=== PATIENT | female | born 1945 | race Hispanic/Latino ===

== ENCOUNTER 2024-02-27 19:31 | Inpatient (IN) | payer MEDICARE, OTHER ==
[~2024-02-27] VITALS: Ht 152.4 cm; Wt 57.6 kg
[2024-02-27 19:52] LABS: BASOPHILS % 0.1 % (0.0-1.0); LYMPHOCYTES # (AUTO) 1.1 (1.0-3.2); LYMPHOCYTES % 12.5 % (18.0-39.1); MONOCYTES # (AUTO) 0.7 (0.2-0.8); MONOCYTES % 7.4 % (4.4-11.3); NEUTROPHILS % 78.9 % (38.7-80.0); PLATELET COUNT 230 x10e3/uL (140-360); RED BLOOD COUNT 1.22 x10e6/uL (3.6-5.1); RED CELL DISTRIBUTION WIDTH 17.4 % (11.7-14.4); WHITE BLOOD COUNT 8.88 x10e3/uL (4.8-10.8)
[2024-02-27 19:54] LABS: HEMATOCRIT 12.2 % (34.2-44.1); HEMOGLOBIN 3.9 g/dL (12.0-16.0)
[2024-02-27 20:05] LABS: ALBUMIN 2.7 g/dL (3.5-5.0); ALBUMIN/GLOBULIN RATIO 1.1 (0.8-2.0); ANION GAP 25.3 mmol/L (8-16); BILIRUBIN,TOTAL 0.9 mg/dL (0.2-1.2); CREATININE, SERUM 2.55 mg/dL (0.57-1.11); POTASSIUM 5.3 mmol/L (3.5-5.1); TOTAL PROTEIN 5.2 g/dL (6.5-8.1)
[2024-02-27 20:10] LABS: TROPONIN I 0.046 ng/mL (0-0.300)
[2024-02-27] MEDS: SODIUM CHLORIDE 0.9% 1000ML 1,000 ML IV STA ×2 (20:14→20:16)
[2024-02-27] MEDS ORDERED: NOREPINEPHRINE 8 MG/D5W 250 ML 250 ML ONE (20:14)
[2024-02-27] MEDS: NOREPINEPHRINE 8 MG/D5W 250 ML 250 ML IV SCH (20:15)
[2024-02-27 20:16] LABS: B-TYPE NATRIURETIC PEPTIDE2 1149.6 pg/mL (0-100)
[2024-02-27 20:30] VITALS: PULSE 58; RESP 20; O2SAT 100
[2024-02-27 20:40] LABS: BILIRUBIN,URINE NEGATIVE (NEGATIVE); CLARITY,URINE SL CLOUDY (CLEAR); COLOR,URINE YELLOW (YELLOW); GLUCOSE, URINE 500 (NEGATIVE); KETONES,URINE NEGATIVE (NEGATIVE); LEUKOCYTE ESTERASE ,URINE NEGATIVE (NEGATIVE); NITRITE,URINE NEGATIVE (NEGATIVE); PH,URINE 5.5 (5 - 7); PROTEIN,URINE DIPSTICK NEGATIVE (NEGATIVE); URINE UROBILINOGEN 0.2 mg/dL (0.2 - 1)
[2024-02-27 20:51] LABS: BACTERIA,URINE RARE /HPF; EPITHELIAL CELLS,URINE RARE /LPF
[2024-02-27] MEDS: ACETAMINOPHEN 325 MG TAB PO STA (21:00)
[2024-02-27] MEDS ORDERED: DEXTROSE 50% SYRINGE 50 ML IV PRN (21:30)
[2024-02-27] MEDS ORDERED: SODIUM CHLORIDE 0.9% 1000ML 1,000 ML IV SCH (21:30)
[2024-02-27 22:18] LABS: BASOPHILS % 0.1 % (0.0-1.0); LYMPHOCYTES # (AUTO) 1.4 (1.0-3.2); LYMPHOCYTES % 10.9 % (18.0-39.1); MEAN CORPUSCULAR HEMOGLOBIN 31.9 pg (28-32); MEAN CORPUSCULAR HGB CONC 32.4 g/dL (31-35); MEAN CORPUSCULAR VOLUME 98.6 fL (81-99); MONOCYTES # (AUTO) 0.9 (0.2-0.8); MONOCYTES % 6.6 % (4.4-11.3); NEUTROPHILS # (AUTO) 10.8 (2.1-6.9); NEUTROPHILS % 81.3 % (38.7-80.0); RED BLOOD COUNT 1.44 x10e6/uL (3.6-5.1); WHITE BLOOD COUNT 13.26 x10e3/uL (4.8-10.8)
[2024-02-27 22:20] LABS: HEMATOCRIT 14.2 % (34.2-44.1); HEMOGLOBIN 4.6 g/dL (12.0-16.0); PLATELET COUNT 195 x10e3/uL (140-360)
[2024-02-27 22:30] LABS: ALBUMIN 2.6 g/dL (3.5-5.0); ANION GAP 23.1 mmol/L (8-16); CALCIUM 7.3 mg/dL (8.4-10.2); CREATININE, SERUM 2.45 mg/dL (0.57-1.11); POTASSIUM 5.1 mmol/L (3.5-5.1); TOTAL PROTEIN 5.1 g/dL (6.5-8.1); TROPONIN I 0.053 ng/mL (0-0.300)
[2024-02-27] MEDS: SODIUM CHLORIDE 0.9% 250ML 250 ML IV ONE (22:52)
[2024-02-27 23:06] LABS: ABG PH 7.27 (7.35-7.45)
[2024-02-27] MEDS: SODIUM BICARBONATE 8.4% 50 ML in SODIUM CHLORIDE 0.45% 1,000 ML IV ONE (23:06)
[2024-02-27 23:07] LABS: ABG HCO3 9 mmol/L (22-26); ABG PCO2 19 mmHg (35-45); ABG PO2 356 mmHg (80-105); ABG TCO2 9
[2024-02-27] MEDS ORDERED: SODIUM CHLORIDE 0.45% 1,000 ML ONE (23:07)
[2024-02-27] MEDS ORDERED: SODIUM BICARBONATE 8.4% SYRING 50 ML ONE (23:08)
[2024-02-27 23:50] VITALS: BP 97/53; PULSE 80; RESP 20; TEMP 94.5; O2SAT 93
[2024-02-28] VITALS (54 sets, daily range): BP systolic 58–122; BP diastolic 26–95; PULSE 42–146; RESP 12–23; TEMP 98.5–99.8; O2SAT 84–100
[2024-02-28] MEDS: ACETAMINOPHEN 325 MG TAB PO PRN (02:40)
[2024-02-28] MEDS ORDERED: CEPHALEXIN500 MG (03:53)
[2024-02-28] MEDS ORDERED: GLYBURIDE5 MG PO (03:53)
[2024-02-28] MEDS ORDERED: GLIPIZIDE5 MG (03:53)
[2024-02-28] MEDS ORDERED: CARVEDILOL6.25 MG (03:53)
[2024-02-28] MEDS ORDERED: ALLOPURINOL100 MG (03:53)
[2024-02-28] MEDS ORDERED: LOSARTAN POTASS25 MG (03:53)
[2024-02-28] MEDS ORDERED: ELIQUIS2.5 MG (03:53)
[2024-02-28] MEDS ORDERED: FUROSEMIDE20 MG (03:53)
[2024-02-28] MEDS ORDERED: ATORVASTATIN CA20 MG (03:53)
[2024-02-28] MEDS ORDERED: FARXIGA10 MG (03:53)
[2024-02-28] MEDS ORDERED: COLACE CLEAR50 MG (03:53)
[2024-02-28] MEDS ORDERED: IBUPROFEN400 MG PO (03:53)
[2024-02-28] MEDS: INSULIN REGULAR, HUMAN 100 UNIT/1 ML SQ SCH (07:30)
[2024-02-28] MEDS: MUPIROCIN 2% OINT 22 GM TUBE TOP SCH (09:00)
[2024-02-28 09:13] LABS: BASOPHILS % 0.1 % (0.0-1.0); HEMATOCRIT 30.8 % (34.2-44.1); HEMOGLOBIN 11.3 g/dL (12.0-16.0); LYMPHOCYTES # (AUTO) 1.3 (1.0-3.2); MEAN CORPUSCULAR HEMOGLOBIN 31.9 pg (28-32); MEAN CORPUSCULAR HGB CONC 36.7 g/dL (31-35); MONOCYTES # (AUTO) 1.8 (0.2-0.8); NEUTROPHILS # (AUTO) 15.1 (2.1-6.9); NEUTROPHILS % 81.8 % (38.7-80.0); PLATELET COUNT 203 x10e3/uL (140-360); RED BLOOD COUNT 3.54 x10e6/uL (3.6-5.1); RED CELL DISTRIBUTION WIDTH 17.4 % (11.7-14.4)
[2024-02-28] MEDS: Vancomycin IV 1 GM in SODIUM CHLORIDE 0.9% 250ML 250 ML IV ONE (09:16)
[2024-02-28 09:31] LABS: ALBUMIN 3.2 g/dL (3.5-5.0); ALBUMIN/GLOBULIN RATIO 1.1 (0.8-2.0); ANION GAP 21.9 mmol/L (8-16); BILIRUBIN,TOTAL 2.4 mg/dL (0.2-1.2); CALCIUM 7.5 mg/dL (8.4-10.2); CREATININE, SERUM 2.72 mg/dL (0.57-1.11); POTASSIUM 4.9 mmol/L (3.5-5.1); TOTAL PROTEIN 6.2 g/dL (6.5-8.1)
[2024-02-28 10:07] LABS: TROPONIN I 0.141 ng/mL (0-0.300)
[2024-02-28] MEDS ORDERED: AMIODARONE HCL 150 MG/100 ML BAG IV ONE (12:45)
[2024-02-28] MEDS ORDERED: AMIODARONE HCL 100 ML IV SCH (12:50)
[2024-02-28] MEDS: AMIODARONE 900MG 500 ML IV SCH (14:21)
[2024-02-28] MEDS: ATORVASTATIN 20 MG TAB PO SCH (21:00)
[2024-02-29] VITALS (81 sets, daily range): BP systolic 68–133; BP diastolic 43–97; PULSE 33–126; RESP 12–28; TEMP 97.8–98.5; O2SAT 52–100
[2024-02-29 03:38] LABS: % IRON SATURATION 71 % (15-50); IRON 189 ug/dL (50-170); TOTAL IRON BINDING CAPACITY 267 ug/dL (261-478); TRANSFERRIN 191 mg/dL (180-382)
[2024-02-29 06:57] LABS: BASOPHILS % 0.2 % (0.0-1.0); EOSINOPHILS % 0.1 % (0.0-6.0); HEMOGLOBIN 11.4 g/dL (12.0-16.0); LYMPHOCYTES # (AUTO) 1.6 (1.0-3.2); MEAN CORPUSCULAR HEMOGLOBIN 31.6 pg (28-32); MEAN CORPUSCULAR HGB CONC 36.8 g/dL (31-35); MEAN CORPUSCULAR VOLUME 85.9 fL (81-99); MONOCYTES # (AUTO) 2.1 (0.2-0.8); MONOCYTES % 12.2 % (4.4-11.3); NEUTROPHILS # (AUTO) 13.4 (2.1-6.9); NEUTROPHILS % 77.5 % (38.7-80.0); PLATELET COUNT 229 x10e3/uL (140-360); RED BLOOD COUNT 3.61 x10e6/uL (3.6-5.1); RED CELL DISTRIBUTION WIDTH 17.6 % (11.7-14.4); WHITE BLOOD COUNT 17.35 x10e3/uL (4.8-10.8)
[2024-02-29 07:10] LABS: INR 2.17; PROTHROMBIN TIME 24.4 seconds (11.9-14.5)
[2024-02-29 07:19] LABS: ALBUMIN 2.8 g/dL (3.5-5.0); ALBUMIN/GLOBULIN RATIO 0.9 (0.8-2.0); BILIRUBIN,TOTAL 1.5 mg/dL (0.2-1.2); CALCIUM 7.3 mg/dL (8.4-10.2); CREATININE, SERUM 2.71 mg/dL (0.57-1.11); TOTAL PROTEIN 5.9 g/dL (6.5-8.1)
[2024-02-29] MEDS: SODIUM BICARBONATE 8.4% 150 ML in DEXTROSE 5% 1,000 ML IV ONE (09:54)
[2024-02-29] MEDS ORDERED: ACETAMINOPHEN 650 MG SUPP PR PRN (13:00)
[2024-02-29] MEDS: AMIODARONE 900MG 500 ML IV SCH (15:05)
[2024-02-29] MEDS: METRONIDAZOLE 500MG/NS 100ML 100 ML IV SCH (15:15)
[2024-03-01] VITALS (85 sets, daily range): BP systolic 63–208; BP diastolic 45–196; PULSE 31–97; RESP 8–37; TEMP 97–98.6; O2SAT 77–100
[2024-03-01 06:59] LABS: BASOPHILS % 0.1 % (0.0-1.0); EOSINOPHILS # (AUTO) 0.1 (0.0-0.4); EOSINOPHILS % 0.6 % (0.0-6.0); HEMATOCRIT 33.8 % (34.2-44.1); HEMOGLOBIN 11.9 g/dL (12.0-16.0); LYMPHOCYTES # (AUTO) 1.4 (1.0-3.2); LYMPHOCYTES % 9.3 % (18.0-39.1); MEAN CORPUSCULAR HEMOGLOBIN 31.3 pg (28-32); MEAN CORPUSCULAR HGB CONC 35.2 g/dL (31-35); MEAN CORPUSCULAR VOLUME 88.9 fL (81-99); MONOCYTES # (AUTO) 1.4 (0.2-0.8); MONOCYTES % 9.5 % (4.4-11.3); NEUTROPHILS # (AUTO) 12.1 (2.1-6.9); NEUTROPHILS % 79.4 % (38.7-80.0); PLATELET COUNT 230 x10e3/uL (140-360); RED CELL DISTRIBUTION WIDTH 17.2 % (11.7-14.4); WHITE BLOOD COUNT 15.23 x10e3/uL (4.8-10.8)
[2024-03-01 07:47] LABS: ANION GAP 18.6 mmol/L (8-16); CALCIUM 7.8 mg/dL (8.4-10.2); CREATININE, SERUM 2.39 mg/dL (0.57-1.11); POTASSIUM 3.6 mmol/L (3.5-5.1)
[2024-03-01 08:34] LABS: TROPONIN I 0.152 ng/mL (0-0.300)
[2024-03-01] MEDS: MIDODRINE HCL 5 MG TABLET PO SCH (13:27)
[2024-03-01] MEDS: SODIUM BICARBONATE 650 MG TAB PO SCH (17:00)
[2024-03-02] VITALS (94 sets, daily range): BP systolic 84–127; BP diastolic 42–86; PULSE 59–98; RESP 10–23; TEMP 96.1–98.1; O2SAT 96–100
[2024-03-02 06:41] LABS: BASOPHILS % 0.2 % (0.0-1.0); EOSINOPHILS # (AUTO) 0.3 (0.0-0.4); EOSINOPHILS % 2.3 % (0.0-6.0); HEMATOCRIT 31.4 % (34.2-44.1); HEMOGLOBIN 11.1 g/dL (12.0-16.0); LYMPHOCYTES # (AUTO) 1.6 (1.0-3.2); MEAN CORPUSCULAR HEMOGLOBIN 31.2 pg (28-32); MEAN CORPUSCULAR HGB CONC 35.4 g/dL (31-35); MEAN CORPUSCULAR VOLUME 88.2 fL (81-99); MONOCYTES # (AUTO) 1.6 (0.2-0.8); NEUTROPHILS # (AUTO) 10.7 (2.1-6.9); NEUTROPHILS % 74.2 % (38.7-80.0); PLATELET COUNT 200 x10e3/uL (140-360); RED BLOOD COUNT 3.56 x10e6/uL (3.6-5.1); RED CELL DISTRIBUTION WIDTH 18.2 % (11.7-14.4); WHITE BLOOD COUNT 14.47 x10e3/uL (4.8-10.8)
[2024-03-02 06:59] LABS: ALBUMIN 2.4 g/dL (3.5-5.0); ALBUMIN/GLOBULIN RATIO 0.8 (0.8-2.0); ANION GAP 16.4 mmol/L (8-16); BILIRUBIN,TOTAL 1.7 mg/dL (0.2-1.2); CALCIUM 7.8 mg/dL (8.4-10.2); CREATININE, SERUM 2.28 mg/dL (0.57-1.11); TOTAL PROTEIN 5.5 g/dL (6.5-8.1)
[2024-03-02 07:10] LABS: POTASSIUM 3.4 mmol/L (3.5-5.1)
[2024-03-03] VITALS (85 sets, daily range): BP systolic 76–120; BP diastolic 45–91; PULSE 47–88; RESP 10–28; TEMP 97.5–98.7; O2SAT 90–100
[2024-03-03] MEDS: BUMETANIDE INJ 0.25MG/ML 4ML VIAL IV ONE (10:27)
[2024-03-03] MEDS: POTASSIUM CHLORIDE 20MEQ/100ML 100 ML IV ONE (10:29)
[2024-03-03] MEDS: SODIUM BICARBONATE 8.4% SYRING 150 ML in DEXTROSE 5% 1,000 ML IV SCH (15:34)
[2024-03-03] MEDS: BUMETANIDE INJ 0.25MG/ML 4ML VIAL IV SCH (21:43)
[2024-03-04] VITALS (80 sets, daily range): BP systolic 83–118; BP diastolic 48–88; PULSE 60–100; RESP 10–20; TEMP 97.3–98.9; O2SAT 72–100
[2024-03-04 06:26] LABS: BASOPHILS % 0.1 % (0.0-1.0); EOSINOPHILS # (AUTO) 0.2 (0.0-0.4); EOSINOPHILS % 2.3 % (0.0-6.0); HEMATOCRIT 33.2 % (34.2-44.1); HEMOGLOBIN 11.2 g/dL (12.0-16.0); LYMPHOCYTES # (AUTO) 1.1 (1.0-3.2); LYMPHOCYTES % 10.7 % (18.0-39.1); MEAN CORPUSCULAR HEMOGLOBIN 31.1 pg (28-32); MEAN CORPUSCULAR HGB CONC 33.7 g/dL (31-35); MEAN CORPUSCULAR VOLUME 92.2 fL (81-99); MONOCYTES # (AUTO) 1.2 (0.2-0.8); MONOCYTES % 11.7 % (4.4-11.3); NEUTROPHILS # (AUTO) 7.5 (2.1-6.9); NEUTROPHILS % 73.3 % (38.7-80.0); PLATELET COUNT 194 x10e3/uL (140-360); RED CELL DISTRIBUTION WIDTH 18.6 % (11.7-14.4); WHITE BLOOD COUNT 10.18 x10e3/uL (4.8-10.8)
[2024-03-04 06:57] LABS: ALBUMIN 2.2 g/dL (3.5-5.0); ALBUMIN/GLOBULIN RATIO 0.8 (0.8-2.0); ANION GAP 16.4 mmol/L (8-16); BILIRUBIN,TOTAL 1.7 mg/dL (0.2-1.2); CALCIUM 7.9 mg/dL (8.4-10.2); CREATININE, SERUM 2.36 mg/dL (0.57-1.11)
[2024-03-04 07:07] LABS: POTASSIUM 3.4 mmol/L (3.5-5.1)
[2024-03-04] MEDS: CEFTRIAXONE 2 GM in SODIUM CHLORIDE 0.9% 100 ML IV SCH (09:09)
[2024-03-04] MEDS: POTASSIUM CHLORIDE 20MEQ/100ML 100 ML IV ONE (10:11)
[2024-03-04] MEDS: BUMETANIDE INJ 0.25MG/ML 4ML VIAL IV SCH (13:01)
[2024-03-05] VITALS (39 sets, daily range): BP systolic 79–112; BP diastolic 53–79; PULSE 62–85; RESP 14–18; TEMP 97.5–98.3; O2SAT 93–100
[2024-03-05 07:07] LABS: ALBUMIN 2.2 g/dL (3.5-5.0); ALBUMIN/GLOBULIN RATIO 0.7 (0.8-2.0); ANION GAP 18.4 mmol/L (8-16); BILIRUBIN,TOTAL 1.4 mg/dL (0.2-1.2); CALCIUM 7.9 mg/dL (8.4-10.2); CREATININE, SERUM 2.49 mg/dL (0.57-1.11); MAGNESIUM 1.6 MG/DL (1.3-2.1); TOTAL PROTEIN 5.3 g/dL (6.5-8.1)
[2024-03-05 07:10] LABS: POTASSIUM 3.4 mmol/L (3.5-5.1)
[2024-03-05] MEDS: POTASSIUM CHLORIDE 20MEQ/100ML 100 ML IV ONE (11:33)
[2024-03-05] MEDS: Doxycycline IV 100 MG in SODIUM CHLORIDE 0.9% 100 ML IV SCH (15:30)
[2024-03-05] MEDS: BUMETANIDE INJ 0.25MG/ML 4ML VIAL IV SCH (15:30)
[2024-03-05] MEDS: SODIUM BICARBONATE 650 MG TAB PO SCH (16:06)
[2024-03-05] MEDS: GABAPENTIN 100 MG CAP PO SCH (16:06)
[2024-03-06] VITALS (71 sets, daily range): BP systolic 80–113; BP diastolic 44–75; PULSE 31–88; RESP 10–23; TEMP 96.3–98.4; O2SAT 81–100
[2024-03-06] MEDS: LIDOCAINE 4% PATCH TP SCH (09:30)
[2024-03-06] MEDS: ONDANSETRON HCL INJ 2MG/ML 2ML 2 MG/ML VIAL IV PRN (12:03)
[2024-03-06] MEDS ORDERED: ALBUMIN 5% 0.05 GM/ML BTL IV ONE (16:45)
[2024-03-06] MEDS: ALBUMIN 5% 250ML 500 ML IV ONE (17:09)
[2024-03-06] MEDS: BUMETANIDE INJ 0.25MG/ML 4ML VIAL IV SCH (20:12)
[2024-03-06] MEDS ORDERED: BUMETANIDE INJ 0.25MG/ML 4ML VIAL IV SCH (21:00)
[2024-03-07] VITALS (88 sets, daily range): BP systolic 83–157; BP diastolic 46–140; PULSE 25–81; RESP 10–20; TEMP 95.6–98; O2SAT 84–100
[2024-03-07 07:03] LABS: BASOPHILS % 0.4 % (0.0-1.0); EOSINOPHILS # (AUTO) 0.2 (0.0-0.4); EOSINOPHILS % 2.2 % (0.0-6.0); HEMOGLOBIN 12.1 g/dL (12.0-16.0); LYMPHOCYTES # (AUTO) 1.1 (1.0-3.2); LYMPHOCYTES % 10.2 % (18.0-39.1); MEAN CORPUSCULAR HEMOGLOBIN 32.1 pg (28-32); MEAN CORPUSCULAR HGB CONC 34.6 g/dL (31-35); MEAN CORPUSCULAR VOLUME 92.8 fL (81-99); MONOCYTES # (AUTO) 1.3 (0.2-0.8); MONOCYTES % 11.9 % (4.4-11.3); NEUTROPHILS # (AUTO) 8.2 (2.1-6.9); NEUTROPHILS % 73.4 % (38.7-80.0); PLATELET COUNT 217 x10e3/uL (140-360); RED BLOOD COUNT 3.77 x10e6/uL (3.6-5.1); RED CELL DISTRIBUTION WIDTH 19.9 % (11.7-14.4); WHITE BLOOD COUNT 11.13 x10e3/uL (4.8-10.8)
[2024-03-07 07:27] LABS: ALBUMIN 2.8 g/dL (3.5-5.0); ANION GAP 20.3 mmol/L (8-16); BILIRUBIN,TOTAL 1.2 mg/dL (0.2-1.2); CALCIUM 8.2 mg/dL (8.4-10.2); CREATININE, SERUM 2.65 mg/dL (0.57-1.11); MAGNESIUM 2.3 MG/DL (1.3-2.1); PHOSPHORUS 4.7 MG/DL (2.3-4.7); TOTAL PROTEIN 5.5 g/dL (6.5-8.1)
[2024-03-07 07:28] LABS: POTASSIUM 3.3 mmol/L (3.5-5.1)
[2024-03-07] MEDS ORDERED: POTASSIUM CHLORIDE 20MEQ/100ML 200 ML ONE (11:07)
[2024-03-07] MEDS: POTASSIUM CHLORIDE 20MEQ/100ML 200 ML IV ONE (11:18)
[2024-03-07] MEDS: BUMETANIDE 10 MG in SODIUM CHLORIDE 0.9% 60 ML IV SCH (11:18)
[2024-03-08] VITALS (73 sets, daily range): BP systolic 85–120; BP diastolic 54–87; PULSE 53–145; RESP 10–23; TEMP 97.6–98; O2SAT 80–100
[2024-03-08 07:51] LABS: ANION GAP 21.8 mmol/L (8-16); CREATININE, SERUM 2.74 mg/dL (0.57-1.11); POTASSIUM 3.8 mmol/L (3.5-5.1)
[2024-03-08 09:27] LABS: BASOPHILS % 0.3 % (0.0-1.0); EOSINOPHILS # (AUTO) 0.1 (0.0-0.4); EOSINOPHILS % 0.9 % (0.0-6.0); HEMATOCRIT 37.5 % (34.2-44.1); HEMOGLOBIN 12.7 g/dL (12.0-16.0); LYMPHOCYTES # (AUTO) 0.7 (1.0-3.2); LYMPHOCYTES % 6.6 % (18.0-39.1); MEAN CORPUSCULAR HEMOGLOBIN 31.9 pg (28-32); MEAN CORPUSCULAR HGB CONC 33.9 g/dL (31-35); MEAN CORPUSCULAR VOLUME 94.2 fL (81-99); NEUTROPHILS # (AUTO) 8.9 (2.1-6.9); NEUTROPHILS % 81.8 % (38.7-80.0); PLATELET COUNT 249 x10e3/uL (140-360); RED BLOOD COUNT 3.98 x10e6/uL (3.6-5.1); RED CELL DISTRIBUTION WIDTH 20.1 % (11.7-14.4); WHITE BLOOD COUNT 10.83 x10e3/uL (4.8-10.8)
[2024-03-08] MEDS ORDERED: TRAMADOL HCL 50 MG TAB ONE ×2 (12:29→19:55)
[2024-03-08] MEDS: TRAMADOL HCL 50 MG TAB PO PRN (12:31)
[2024-03-08] MEDS: MEGESTROL ACETATE 40 MG TAB PO SCH (17:00)
[2024-03-08] MEDS ORDERED: CLOPIDOGREL BISULFATE 75 MG TAB ONE (18:45)
[2024-03-08] MEDS: CLOPIDOGREL BISULFATE 75 MG TAB PO ONE (18:46)
[2024-03-08] MEDS ORDERED: MEGESTROL ACETATE 40 MG TAB ONE (19:54)
[2024-03-09] VITALS (58 sets, daily range): BP systolic 86–124; BP diastolic 53–86; PULSE 62–71; RESP 9–21; TEMP 97.8; O2SAT 100
[2024-03-09] MEDS ORDERED: METOCLOPRAMIDE HCL 10 MG/2ML VIAL ONE ×2 (03:14→15:49)
[2024-03-09] MEDS: METOCLOPRAMIDE HCL 10 MG/2ML VIAL IV ONE (03:19)
[2024-03-09] MEDS ORDERED: TRAMADOL HCL 50 MG TAB ONE ×2 (04:52→11:05)
[2024-03-09 06:53] LABS: INR 1.07; PROTHROMBIN TIME 14.7 seconds (11.9-14.5)
[2024-03-09] MEDS: METOCLOPRAMIDE HCL 10 MG/2ML VIAL IV SCH (08:19)
[2024-03-09 08:59] LABS: BASOPHILS % 0.4 % (0.0-1.0); EOSINOPHILS # (AUTO) 0.1 (0.0-0.4); EOSINOPHILS % 0.6 % (0.0-6.0); HEMATOCRIT 38.5 % (34.2-44.1); HEMOGLOBIN 13.3 g/dL (12.0-16.0); LYMPHOCYTES % 10.7 % (18.0-39.1); MEAN CORPUSCULAR HEMOGLOBIN 32.4 pg (28-32); MEAN CORPUSCULAR HGB CONC 34.5 g/dL (31-35); MEAN CORPUSCULAR VOLUME 93.9 fL (81-99); MONOCYTES # (AUTO) 0.8 (0.2-0.8); MONOCYTES % 8.8 % (4.4-11.3); NEUTROPHILS # (AUTO) 7.5 (2.1-6.9); NEUTROPHILS % 78.6 % (38.7-80.0); PLATELET COUNT 237 x10e3/uL (140-360); RED CELL DISTRIBUTION WIDTH 19.9 % (11.7-14.4); WHITE BLOOD COUNT 9.54 x10e3/uL (4.8-10.8)
[2024-03-09] MEDS ORDERED: CLOPIDOGREL BISULFATE 75 MG TAB PO SCH ×2 (09:00→18:00)
[2024-03-09 09:19] LABS: ALBUMIN 2.4 g/dL (3.5-5.0); ALBUMIN/GLOBULIN RATIO 0.8 (0.8-2.0); ANION GAP 20.5 mmol/L (8-16); CREATININE, SERUM 2.71 mg/dL (0.57-1.11); POTASSIUM 3.5 mmol/L (3.5-5.1); TOTAL PROTEIN 5.3 g/dL (6.5-8.1)
[2024-03-09] MEDS: POTASSIUM CHLORIDE 20MEQ/100ML 100 ML IV ONE (15:01)
[2024-03-09] MEDS ORDERED: POTASSIUM CHLORIDE 20MEQ/100ML 100 ML ONE (15:03)
[2024-03-09] MEDS ORDERED: MEGESTROL ACETATE 40 MG TAB ONE (15:49)
[2024-03-10] VITALS (31 sets, daily range): BP systolic 82–111; BP diastolic 53–73; PULSE 69–78; RESP 11–23; TEMP 97.7–98; O2SAT 99–100
[2024-03-10 07:37] LABS: ALBUMIN 2.4 g/dL (3.5-5.0); ALBUMIN/GLOBULIN RATIO 0.8 (0.8-2.0); ANION GAP 19.8 mmol/L (8-16); BILIRUBIN,TOTAL 0.8 mg/dL (0.2-1.2); CALCIUM 8.2 mg/dL (8.4-10.2); CREATININE, SERUM 2.93 mg/dL (0.57-1.11); POTASSIUM 3.8 mmol/L (3.5-5.1); TOTAL PROTEIN 5.3 g/dL (6.5-8.1)
[2024-03-10] MEDS: AMIODARONE HCL 200 MG TAB PO SCH (08:21)
[2024-03-10] MEDS ORDERED: SODIUM BICARBONATE 650 MG TAB ONE (13:24)
[2024-03-10] MEDS ORDERED: METOCLOPRAMIDE HCL 10 MG/2ML VIAL ONE (13:24)
[2024-03-10] MEDS ORDERED: BUMETANIDE INJ 0.25MG/ML 4ML VIAL ONE (13:24)
[2024-03-10] MEDS ORDERED: LIDOCAINE 4% PATCH TP ONE (13:24)
[2024-03-10] MEDS ORDERED: MEGESTROL ACETATE 40 MG TAB ONE (13:24)
[2024-03-10] MEDS ORDERED: SODIUM CHLORIDE 0.9% INJ 100 ML BAG ONE (13:24)
[2024-03-10] MEDS ORDERED: Doxycycline IV 100 MG Vial IV ONE (13:24)
[2024-03-10] MEDS ORDERED: POTASSIUM CHLORIDE 20MEQ/100ML IVPB ONE (13:24)
[2024-03-10] MEDS ORDERED: MIDODRINE HCL 5 MG TABLET ONE (13:24)
[2024-03-10] MEDS ORDERED: CEFTRIAXONE 2 GM VIAL ONE (13:24)
[2024-03-10] MEDS ORDERED: TRAMADOL HCL 50 MG TAB ONE ×2 (13:52→14:13)
[2024-03-17 11:38] LABS: ABG HCO3 9 mmol/L (22-26); ABG PCO2 19 mmHg (35-45); ABG PH 7.27 (7.35-7.45); ABG PO2 356 mmHg (80-105); ABG TCO2 9
== END 2024-03-10 15:02 | disposition hospice, home (50) | DRG 871 ==
LOC: ER 19:38 → ERHOLD 21:21 → ICU 23:46
PROVIDERS: ADMIT Internal Medicine; ATTEND Internal Medicine
PROC: 06HY33Z Insertion of Infusion Device into Lower Vein, Percutaneous Approach (ICD-10-PCS; principal; 2024-02-27)
PROC: 30233N1 Transfusion of Nonautologous Red Blood Cells into Peripheral Vein, Percutaneous Approach (ICD-10-PCS; 2024-02-27)
PROC: 3E03329 Introduction of Other Anti-infective into Peripheral Vein, Percutaneous Approach (ICD-10-PCS; 2024-02-27)
PROC: 4A133R1 Monitoring of Arterial Saturation, Peripheral, Percutaneous Approach (ICD-10-PCS; 2024-02-27)
PROC: 3E033XZ Introduction of Vasopressor into Peripheral Vein, Percutaneous Approach (ICD-10-PCS; 2024-02-27)
PROC: 0T9B70Z Drainage of Bladder with Drainage Device, Via Natural or Artificial Opening (ICD-10-PCS; 2024-02-27)
PROC: 02H633Z Insertion of Infusion Device into Right Atrium, Percutaneous Approach (ICD-10-PCS; 2024-03-03)
DX: A41.9 Sepsis, unspecified organism (principal); G93.41 Metabolic encephalopathy; J18.9 Pneumonia, unspecified organism; K65.2 Spontaneous bacterial peritonitis; R65.21 Severe sepsis with septic shock; J96.01 Acute respiratory failure with hypoxia; R57.8 Other shock; K66.1 Hemoperitoneum; E87.20 Acidosis, unspecified; I48.20 Chronic atrial fibrillation, unspecified; D68.9 Coagulation defect, unspecified; N17.9 Acute kidney failure, unspecified; R18.8 Other ascites; E44.0 Moderate protein-calorie malnutrition; E87.1 Hypo-osmolality and hyponatremia; D62 Acute posthemorrhagic anemia; N18.4 Chronic kidney disease, stage 4 (severe); K76.6 Portal hypertension; Z66 Do not resuscitate; Z51.5 Encounter for palliative care; Z11.52 Encounter for screening for COVID-19; K74.60 Unspecified cirrhosis of liver; E83.51 Hypocalcemia; E88.09 Other disorders of plasma-protein metabolism, not elsewhere classified; I12.9 Hypertensive chronic kidney disease with stage 1 through stage 4 chronic kidney disease, or unspecified chronic kidney disease; E11.22 Type 2 diabetes mellitus with diabetic chronic kidney disease; L89.611 Pressure ulcer of right heel, stage 1; L89.621 Pressure ulcer of left heel, stage 1; L89.151 Pressure ulcer of sacral region, stage 1; E11.65 Type 2 diabetes mellitus with hyperglycemia; E11.51 Type 2 diabetes mellitus with diabetic peripheral angiopathy without gangrene; I27.29 Other secondary pulmonary hypertension; R54 Age-related physical debility; D63.1 Anemia in chronic kidney disease; R68.0 Hypothermia, not associated with low environmental temperature; E87.5 Hyperkalemia; E78.5 Hyperlipidemia, unspecified; Z68.20 Body mass index [BMI] 20.0-20.9, adult; I89.0 Lymphedema, not elsewhere classified; M10.9 Gout, unspecified; I35.0 Nonrheumatic aortic (valve) stenosis; S80.821A Blister (nonthermal), right lower leg, initial encounter; H91.93 Unspecified hearing loss, bilateral; R79.89 Other specified abnormal findings of blood chemistry; Z79.84 Long term (current) use of oral hypoglycemic drugs; Z79.01 Long term (current) use of anticoagulants; Z86.718 Personal history of other venous thrombosis and embolism; X58.XXXA Exposure to other specified factors, initial encounter
CPT/HCPCS: 36415; 36555; 36600; 51700; 70450; 71045; 71250; 74176; 76700; 76770; 80048; 80053; 80202; 81001; 82140; 82550; 82607; 82746; 82805; 82948; 83540; 83605; 83690; 83735; 83880; 84100; 84443; 84466; 84484; 85025; 85045; 85610; 86039; 86140; 86850; 86900; 86920; 87040; 87086; 93005; 93306; 93925; 94799; 99252; 99285; J0692; J0696; J2405; J2543; J2765; J3480; J7030; J7050; J7070; P9016; U0002